=== PATIENT | female | born 2000 | race Caucasian/White ===

== ENCOUNTER 2020-01-14 17:15 | Emergency (ER) | payer OTHER, SELFPAY ==
[2020-01-14 17:22] VITALS: BP 151/107; PULSE 86; RESP 16; TEMP 36.9; O2SAT 98; BMI 28.1
--- NOTE | 2020-01-14 17:43 | PC.NURSE ---
PT A&O, NO SOB OR CHEST PAIN. NO N/V. PROVIDER IN TO ASSESS PT.
[2020-01-14 17:53] VITALS: BP 148/82; PULSE 76; RESP 16
[2020-01-14 18:17] LABS: Basophils Percent Auto 0.6 % (0-2); Eosinophils Absolute Auto 0.2 X10*3/uL (0.0-0.4); Eosinophils Percent Auto 2.9 % (0-4); Hematocrit 35.4 % (37-47); Hemoglobin 11.7 g/dl (12.0-16.0); Imm Gran Abs Auto 0.02 X10*3/uL (0.00-0.03); Imm Gran Pct Auto 0.3 % (0.0-0.4); Lymphocytes Absolute Auto 2.1 X10*3/uL (1.2-4.9); Lymphocytes Percent Auto 31.8 % (20-40); MANUAL DIFF FLAG NO; Mean Corpuscular HGB Conc 33.1 g/dl (31.0-35.0); Mean Corpuscular Hemoglobin 28.6 pg (27.0-33.0); Mean Corpuscular Volume 86.6 fL (80-98); Mean Platelet Volume 10.3 fL (9.4-12.3); Monocytes Absolute Auto 0.5 X10*3/uL (0.1-1.2); Monocytes Percent Auto 7.3 % (2-11); Neutrophils Absolute Auto 3.8 X10*3/uL (2.0-8.3); Neutrophils Percent Auto 57.1 % (45-73); Platelet Count 286 X10*3/uL (160-400); Red Blood Count 4.09 X10*6/uL (4.20-5.50); Red Cell Distribution Width 12.3 % (11.0-16.0); White Blood Count 6.6 X10*3/uL (4.8-10.8)
[2020-01-14 18:45] LABS: Magnesium 1.8 mg/dL (1.6-2.6)
[2020-01-14 18:46] LABS: Alanine Aminotransferase 10 U/L (0-31); Albumin Level 4.2 g/dL (3.5-5.0); Alkaline Phosphatase 70 U/L (39-117); Anion Gap 14 (12-20); Aspartate Amino Transferase 11 U/L (5-31); Bilirubin Direct < 0.2 mg/dL (0.0-0.5); Bilirubin Total 0.2 mg/dL (0.0-1.0); Blood Urea Nitrogen 14 mg/dL (9-16); Calcium 9.2 mg/dL (8.4-10.2); Carbon Dioxide 24 mmol/L (22-29); Chloride 107 mmol/L (96-108); Creatinine Clr Calc Pharmacy 127.3; Estimated Glomerular Filt Rate > 60; Glucose Random 114 mg/dL (60-115); Lactate Dehydrogenase 151 U/L (122-220); Lipase 14 U/L (8-78); Potassium 3.6 mmol/l (3.3-5.1); Sodium 141 mmol/L (135-145); Total Protein 6.9 g/dL (6.5-8.0)
--- NOTE | 2020-01-14 18:46 | ED_ITS ---
HPI - Headache General Chief Complaint: Headache Stated Complaint: HBP Time Seen by Provider: 01/14/20 17:40 Source: patient Mode of arrival: ambulatory Limitations: no limitations History of Present Illness HPI Narrative: 19-year-old female with preeclampsia, pre term premature rupture of membranes, 2 weeks with spontaneous vaginal delivery presents with headaches and hypertension. she has had poor care, did not know that she was until her 3rd trimester, and was treated for and admitted to [facility] for preeclampsia with severe ranges in blood pressure. At this time her only complaint is a headache and elevated blood pressure. She denies vaginal bleeding, vaginal discharge, fevers, chills, abdominal pain, chest pain or pressure, palpitations, shortness of breath, dysuria, hematuria, and edema. Related Data Allergies Allergy/AdvReac Type Severity Reaction Status Date / Time No Known Allergies Allergy Verified 01/14/20 17:24 Review of Systems Review of Systems: Constitutional: No Fever, No Chills positive headache, elevated blood pressures at home ENT/Mouth: No sore throat, No Rhinorrhea Eyes: No Eye Pain, No Swelling, No Redness Cardiovascular: No Chest Pain, No SOB Respiratory: No Cough, No Sputum Gastrointestinal: No Nausea, No Vomiting, No Diarrhea, No abdominal Pain Genitourinary: No Dysuria, No Hematuria, no vaginal bleeding, no vaginal discharge Musculoskeletal: No joint pain, No Myalgias, No Joint Swelling Skin: No Skin Lesions, no skin rash Neuro: No Weakness, No Numbness, No Loss of Consciousness, No Dizziness, No Headache Psych: No Anxiety, No Depression, No SI/HI/AH/VH Heme/Lymph: No Bruising, No Bleeding,No Lymphadenopathy Endocrine: No Polyuria, No Polydipsia Yes all other systems are reviewed and are negative [facility] Past Medical History Attestation statement: The following information was validated with the patient. Medical History No known health problems : 1 Para: 1 Social History Social History Smoked in Last 30 Days: No Use of substances other than those prescribed or required for medical reasons: No Advance Directives: No Advance Directives Information Provided: No Physical Exam Vital Signs: Vital Signs: Last Vital Signs Temp 97.8 F 01/14/20 19:39 Pulse 74 01/14/20 19:39 Resp 18 01/14/20 19:39 BP 143/95 H 01/14/20 19:39 Pulse Ox 99 01/14/20 19:39 Body Mass Index 28.1 IMP/Plan: Allergic rxn. Not anaphylaxis. Not sepsis/ infectious etiology. Patient well appearing in no acute distress, breathing easily without throat symptoms. Speaking full sentences, and handling secretions without difficulty. There is no obvious threat to airway. Lungs are CTA in all rothman. No signs of angioedema, stridor, airway compromise, anaphylaxis or anaphylactic shock. Not c/w SSSS/ TEN/ Eryth multiforme/ Nails Johnsons. Given HPI and PE - Will watch and observe. If patient continues to be symptom free - will d/c with return precautions. Patient understands and agrees with plan Course Course Course Narrative: She was admitted for preeclampsia with severe features by severe blood pressure ranges and pre term labor premature rupture of membranes. She was seen at [facility] then transferred to [facility] on 01/01/2020. She had limited care, 36 weeks with normal spontaneous vaginal delivery. Her daughter was born healthy. We will monitor blood pressures, draw labs, and contact driver salesman. Lab values are unremarkable And within normal limits, LDH normal, liver e nzymes normal. blood pressures remain elevated 143/95 at 7:39 p.m. discussion with on-call OBGYN, plan of care is for her to have Motrin, to follow-up with her OBGYN this week, contraindicated to start blood pressure medications as we do not want to mask any preeclampsia symptoms. Patient verbalized understanding of and agrees to plan of care discharge home. Consultations Consultation #1: Jyothi Time: 19:40 MDM - Headache Differential Diagnosis Differential diagnosis: Likely migraine and headache Medical Records Attestation: I reviewed the patient's medical records. Lab Data Attestation: I reviewed the patient's lab results. Result diagrams: 01/14/20 18:11 01/14/20 18:11 Labs: Lab Results 01/14/20 01/14/20 01/14/20 Range/Units 18:11 18:11 18:11 WBC 6.6 (4.8-10.8) X10*3/uL RBC 4.09 L (4.20-5.50) X10*6/uL Hgb 11.7 L (12.0-16.0) g/dl Hct 35.4 L (37-47) % MCV 86.6 (80-98) fL MCH 28.6 (27.0-33.0) pg MCHC 33.1 (31.0-35.0) g/dl RDW 12.3 (11.0-16.0) % Plt Count 286 (160-400) X10*3/uL MPV 10.3 (9.4-12.3) fL Immature Gran % (Auto) 0.3 (0.0-0.4) % Neut % (Auto) 57.1 (45-73) % Lymph % (Auto) 31.8 (20-40) % [place] % (Auto) 7.3 (2-11) % Eos % (Auto) 2.9 (0-4) % Baso % (Auto) 0.6 (0-2) % Lymph # (Auto) 2.1 (1.2-4.9) X10*3/uL [place] # (Auto) 0.5 (0.1-1.2) X10*3/uL Eos # (Auto) 0.2 (0.0-0.4) X10*3/uL Baso # (Auto) 0.0 (0.0-0.2) X10*3/uL Abs Immat Gran (auto) 0.02 (0.00-0.03) X10*3/uL Absolute Neuts (auto) 3.8 (2.0-8.3) X10*3/uL Absolute Nucleated RBC 0.000 (0.0-0.012) X10*3/uL Nucleated RBC % (auto) 0.0 (0.0-0.2) /100WBC Sodium 141 (135-145) mmol/L Potassium 3.6 (3.3-5.1) mmol/l Chloride 107 (96-108) mmol/L Carbon Dioxide 24 (22-29) mmol/L Anion Gap 14 (12-20) BUN 14 (9-16) mg/dL Creatinine 0.69 (0.5-1.4) mg/dL Estim Creat Clear Calc 127.3 Estimated GFR > 60 Random Glucose 114 (60-115) mg/dL Calcium 9.2 (8.4-10.2) mg/dL Magnesium 1.8 (1.6-2.6) mg/dL Total Bilirubin 0.2 (0.0-1.0) mg/dL Direct Bilirubin < 0.2 (0.0-0.5) mg/dL AST 11 (5-31) U/L ALT 10 (0-31) U/L Alkaline Phosphatase 70 (39-117) U/L Lactate Dehydrogenase 151 (122-220) U/L Total Protein 6.9 (6.5-8.0) g/dL Albumin 4.2 (3.5-5.0) g/dL Lipase 14 (8-78) U/L Discharge Plan Discharge Clinical Impression: Pre-eclampsia in period Headache Qualifiers: Headache type: unspecified Headache chronicity pattern: acute headache Intractability: not intractable Qualified Code(s): R51.9 - Headache, unspecified Patient Disposition: Home, Self-Care Instructions: Acute Headache (ED) Additional Instructions: please take Motrin and/or Tylenol as needed for headaches. This is suspected to be preeclampsia. Please follow-up with your ELECTRIC ACCOUNTING MACHINE OPERATOR this week. Thank you for choosing this emergency department for evaluation. Please follow-up with primary care physician as needed. Return to the emergency department for any new, concerning, or worsening symptoms. Interventions: ED Discharge Assessment Last Done: 01/14/20 20:22 Discharge Date/Time: 01/14/20 20:24
--- NOTE | 2020-01-14 18:48 | PC.NURSE ---
Iv line placed and labs sent. pt is resting in bed on her cell phone. no n/v.
[2020-01-14 19:39] VITALS: BP 143/95; PULSE 74; RESP 18; TEMP 36.6; O2SAT 99
[2020-01-14] MEDS: Ibuprofen 600 MG TABLET PO (20:12)
== END 2020-01-14 20:24 | disposition home or self-care (01) ==
PROVIDERS: Nurse Practitioner Family; Emergency Provider Emergency Medicine; PCP Internal Medicine
DX: O14.95 Unspecified pre-eclampsia, complicating the puerperium (principal); R51.9 Headache, unspecified
CPT/HCPCS: 36415; 80048; 80076; 83615; 83690; 83735; 85025; 99283; 99284

== ENCOUNTER 2020-03-02 22:58 | Emergency (ER) | payer OTHER, SELFPAY ==
[2020-03-02 23:35] VITALS: BP 149/89; PULSE 71; RESP 16; TEMP 36.3; O2SAT 99; BMI 31.0
--- NOTE | 2020-03-02 23:55 | ECG_ITS ---
Test Reason : HYPERTENSION Blood Pressure : / mmHG Vent. Rate : 068 BPM Atrial Rate : 068 BPM P-R Int : 138 ms QRS Dur : 082 ms QT Int : 406 ms P-R-T Axes : 025 050 040 degrees QTc Int : 431 ms Normal sinus rhythm with sinus arrhythmia Normal ECG No previous ECGs available Referred By: Oliver Ash Electronically Signed By:ARYA GRAJEDA
--- NOTE | 2020-03-02 23:58 | ED.GENADULT ---
HPI - General Adult General Chief complaint: General Medical Stated complaint: hypertension Time Seen by Provider: 03/02/20 23:09 Source: patient Mode of arrival: ambulatory Limitations: no limitations History of Present Illness HPI narrative: 19-year-old female G1, P1 with history of preeclampsia, pre term premature rupture of membranes on 12/29/2019, delivered a healthy baby girl vaginally at 36 weeks at [facility] who presents to the emergency department for evaluation of lightheadedness and elevated blood pressure. The patient states she had poor care since she did not know she was until her 3rd trimester. She states that when she was in the hospital at [facility], she did have headaches and elevated blood pressures. She states that she was on magnesium but at the time of discharge her blood pressure improved and she was not treated with blood pressure medications. She was seen here in the emergency department on 01/14/2020 for headaches and elevated blood pressure in the 140/90 range. She states that she followed up with her STRIKE ON MACHINE OPERATOR after this ED visit and they did not think that she required blood pressure medications. She states that this evening she felt lightheaded but had no other symptoms. She denied headache, nausea, chest pain, abdominal pain, fatigue. She checked her blood pressure with a wrist blood pressure cuff at 8:30 p.m. and her blood pressure was 195/139. She then waited and repeated her blood pressure which was higher at 246/179 therefore she came to the emergency department for evaluation. At the time of evaluation she has no complaints. Her initial blood pressure in the emergency department was 148/89. Related Data Home Medications Medication Instructions Recorded Confirmed No Known Home Meds 03/03/20 03/03/20 Allergies Allergy/AdvReac Type Severity Reaction Status Date / Time No Known Allergies Allergy Verified 01/14/20 17:24 Review of Systems Review of Systems: Yes all other systems are reviewed and are negative Neurologic: Reports Abnormal speech present [facility] Past Medical History [facility] Narrative: The patient has a history of preeclampsia, she has no other chronic medical conditions. She denies alcohol use. She states she drinks alcohol occasionally, she denies drug use. Medical History No known health problems Social History Social History Smoking Status: Never smoker Use of substances other than those prescribed or required for medical reasons: No Advance Directives: No Advance Directives Information Provided: No Physical Exam Vital Signs: Vital Signs: Last Vital Signs Temp 97.4 F 03/02/20 23:35 Pulse 71 03/03/20 00:18 Resp 15 03/03/20 00:18 BP 130/77 03/03/20 00:18 Pulse Ox 99 03/02/20 23:35 Body Mass Index 31.0 Const: General: cooperative and healthy appearing Nutritional Appearance: overweight Orientation/consciousness: oriented to person and oriented to place Limitations: no limitations HENMT: Head: Yes normal to inspection, Yes normocephalic and Yes atraumatic Ears: external ears normal General nose exam: Normal external nose present Face and sinus: Yes normal facial exam Mouth: Normal oral and palatal mucosa present Throat: Yes posterior oropharynx normal Eyes: Periorbital: periorbital findings normal Eyelids: Yes eyelids normal Conjunctivae: conjunctivae normal Sclerae: sclerae normal Corneas: corneas normal Pupils: Equal, round and reactive pupils present Direct Ophthalmoscopy: normal light reflex Neck: Neck: Yes full ROM, Yes no lymphadenopathy, Yes no meningeal signs, Yes trachea midline and Yes supple Chest: Chest palpation & inspection: normal inspection of the chest and normal palpation of entire chest wall Resp: Effort & Inspection: normal respiratory effort and able to speak in complete sentences Auscultation: clear to auscultation bilaterally Cardio: Rate: regular rate Rhythm: regular rhythm Heart sounds: S1 normal heart sound present, S2 normal heart sound present and no murmurs GI: Inspection: Yes normal to inspection Palpation (GI): Soft to palpation, nontender, no guarding, not rigid and No hepatosplenomegaly present : General: Yes no CVA tenderness Back/Spine/Pelvis: Back: no CVA tenderness Cervical Spine: normal cervical lordosis Thoracic/Lumbar Spine: thoracic and lumbar spine normal to inspection Skin: Lesions: no lesions Rashes: no rashes Wounds: no wounds Neuro: General: oriented to person, oriented to place and no meningeal signs Cranial nerves: Yes CN's II-XII intact bilaterally and Yes Equal, round and reactive pupils present Cognition (Neuro): normal cognition Speech: Abnormal speech present Motor exam (neuro): 5/5 motor strength present throughout Extrem: General: Yes normal to inspection and Yes full ROM Psych: Appearance: well kempt Mental Status: mental status grossly normal Speech and movement: Normal speech and movement present Affect: normal affect Attitude: cooperative Thought process: Normal thought process present Thought content: Normal thought content present Course Course Course Narrative: 18-year-old female who presents emergency department for evaluation lightheadedness and hypertension. The patient is 2 months and her was complicated by preeclampsia. The patient's physical examination was unremarkable except for an elevated blood pressure of 148/89. I do not believe that the patient's blood pressure readings that she obtained at home were accurate. The patient will have a blood pressure monitor while she is here in the emergency department and I did order a CBC, CMP, UA Urine test on this patient. 0106: The patient's laboratory evaluation was normal with a normal platelet count, normal LFTs, and a urinalysis which was negative for protein. Patient's urine test was negative. EKG was normal and patient's troponin was not elevated. The patient's repeat blood pressures were normal with her last blood pressure being 109/63 and this was without treatment. I did discuss these findings with the patient. She was advised to get a new blood pressure cuff and to check her blood pressure on Wednesday, Wednesday and Wednesday mornings for the next 2 weeks. She was instructed to record these readings and discuss them with her PCP. Medical Decision Making Lab Data Result diagrams: 03/03/20 00:17 03/03/20 00:17 Labs: Lab Results 03/03/20 03/03/20 03/03/20 Range/Units 00:17 00:17 00:17 WBC 8.2 (4.8-10.8) X10*3/uL RBC 4.59 (4.20-5.50) X10*6/uL Hgb 12.7 (12.0-16.0) g/dl Hct 40.0 (37-47) % MCV 87.1 (80-98) fL MCH 27.7 (27.0-33.0) pg MCHC 31.8 (31.0-35.0) g/dl RDW 12.4 (11.0-16.0) % Plt Count 353 (160-400) X10*3/uL MPV 10.2 (9.4-12.3) fL Immature Gran % (Auto) 0.4 (0.0-0.4) % Neut % (Auto) 44.6 L (45-73) % Lymph % (Auto) 37.1 (20-40) % [place] % (Auto) 9.2 (2-11) % Eos % (Auto) 8.1 H (0-4) % Baso % (Auto) 0.6 (0-2) % Lymph # (Auto) 3.0 (1.2-4.9) X10*3/uL [place] # (Auto) 0.8 (0.1-1.2) X10*3/uL Eos # (Auto) 0.7 H (0.0-0.4) X10*3/uL Baso # (Auto) 0.1 (0.0-0.2) X10*3/uL Abs Immat Gran (auto) 0.03 (0.00-0.03) X10*3/uL Absolute Neuts (auto) 3.6 (2.0-8.3) X10*3/uL Absolute Nucleated RBC 0.000 (0.0-0.012) X10*3/uL Nucleated RBC % (auto) 0.0 (0.0-0.2) /100WBC Sodium 141 (135-145) mmol/L Potassium 3.8 (3.3-5.1) mmol/l Chloride 106 (96-108) mmol/L Carbon Dioxide 26 (22-29) mmol/L Anion Gap 13 (12-20) BUN 12 (9-16) mg/dL Creatinine 0.71 (0.5-1.4) mg/dL Estim Creat Clear Calc 128.7 Estimated GFR > 60 Random Glucose 97 (60-115) mg/dL Calcium 9.1 (8.4-10.2) mg/dL Total Bilirubin 0.2 (0.0-1.0) mg/dL AST 15 (5-31) U/L ALT 15 (0-31) U/L Alkaline Phosphatase 78 (39-117) U/L Troponin I High Sens < 3.5 (<3.5-17.0) ng/L Total Protein 7.5 (6.5-8.0) g/dL Albumin 4.4 (3.5-5.0) g/dL Urine Color Urine Appearance Urine pH (5.0-8.0) Ur Specific [place] (1.005-1.025) Urine Protein (NEG-TRACE) MG/DL Urine Glucose (UA) (NEG) MG/DL Urine Ketones (NEG) MG/DL Urine Blood (NEG) Urine Nitrite (NEG) Ur Leukocyte Esterase (NEG) Urine Test (NEGATIVE) 03/03/20 Range/Units 00:17 WBC (4.8-10.8) X10*3/uL RBC (4.20-5.50) X10*6/uL Hgb (12.0-16.0) g/dl Hct (37-47) % MCV (80-98) fL MCH (27.0-33.0) pg MCHC (31.0-35.0) g/dl RDW (11.0-16.0) % Plt Count (160-400) X10*3/uL MPV (9.4-12.3) fL Immature Gran % (Auto) (0.0-0.4) % Neut % (Auto) (45-73) % Lymph % (Auto) (20-40) % [place] % (Auto) (2-11) % Eos % (Auto) (0-4) % Baso % (Auto) (0-2) % Lymph # (Auto) (1.2-4.9) X10*3/uL [place] # (Auto) (0.1-1.2) X10*3/uL Eos # (Auto) (0.0-0.4) X10*3/uL Baso # (Auto) (0.0-0.2) X10*3/uL Abs Immat Gran (auto) (0.00-0.03) X10*3/uL Absolute Neuts (auto) (2.0-8.3) X10*3/uL Absolute Nucleated RBC (0.0-0.012) X10*3/uL Nucleated RBC % (auto) (0.0-0.2) /100WBC Sodium (135-145) mmol/L Potassium (3.3-5.1) mmol/l Chloride (96-108) mmol/L Carbon Dioxide (22-29) mmol/L Anion Gap (12-20) BUN (9-16) mg/dL Creatinine (0.5-1.4) mg/dL Estim Creat Clear Calc Estimated GFR Random Glucose (60-115) mg/dL Calcium (8.4-10.2) mg/dL Total Bilirubin (0.0-1.0) mg/dL AST (5-31) U/L ALT (0-31) U/L Alkaline Phosphatase (39-117) U/L Troponin I High Sens (<3.5-17.0) ng/L Total Protein (6.5-8.0) g/dL Albumin (3.5-5.0) g/dL Urine Color YELLOW Urine Appearance CLEAR Urine pH 6.0 (5.0-8.0) Ur Specific [place] 1.020 (1.005-1.025) Urine Protein NEG (NEG-TRACE) MG/DL Urine Glucose (UA) NEG (NEG) MG/DL Urine Ketones NEG (NEG) MG/DL Urine Blood NEG (NEG) Urine Nitrite NEG (NEG) Ur Leukocyte Esterase NEG (NEG) Urine Test NEGATIVE (NEGATIVE) ECG Data Attestation: I personally reviewed and interpreted this ECG as follows: Interpretation: 0139: Normal sinus rhythm with a rate of 68, normal WA, QRS and QTC intervals, inverted T-waves in V1 and V2, no ST segment elevation, no ST segment depression, this is a normal EKG. There is no old EKG for comparison. Discharge Plan Discharge Clinical Impression: HBP (high blood pressure) Qualifiers: Hypertension type: unspecified Qualified Code(s): I10 - Essential (primary) hypertension Patient Disposition: Home, Self-Care Additional Instructions: The reason to check your blood pressure at home is to give your doctor an idea of what your blood pressure does when you are not in the doctor's office. Take your blood pressure in the morning, Mondays, Wednesdays and Fridays and then write down these readings to discuss them with your doctor at your next visit. If you doctor decides that your blood pressure readings are high than your doctor either do more testing or will start you on medications. If you get started on medications, it often takes 1-2 months or longer to get your blood pressure under control. Please return to the emergency department if you develops concerning symptoms such as severe headache, chest pain, shortness of breath, difficulty walking secondary to shortness of breath, numbness, weakness, difficulty talking. Follow-up with your doctor to discuss your blood pressure readings. Please return to the emergency department if your symptoms get worse or if you develop any new symptoms that are concerning to you. Prescriptions: No Action No Known Home Meds RF: 0
[2020-03-03 00:18] VITALS: BP 130/77; PULSE 71; RESP 15
[2020-03-03 00:29] LABS: MANUAL DIFF FLAG NO
[2020-03-03 00:37] LABS: Basophils Absolute Auto 0.1 X10*3/uL (0.0-0.2); Basophils Percent Auto 0.6 % (0-2); Eosinophils Absolute Auto 0.7 X10*3/uL (0.0-0.4); Eosinophils Percent Auto 8.1 % (0-4); Hemoglobin 12.7 g/dl (12.0-16.0); Imm Gran Abs Auto 0.03 X10*3/uL (0.00-0.03); Imm Gran Pct Auto 0.4 % (0.0-0.4); Lymphocytes Percent Auto 37.1 % (20-40); Mean Corpuscular HGB Conc 31.8 g/dl (31.0-35.0); Mean Corpuscular Hemoglobin 27.7 pg (27.0-33.0); Mean Corpuscular Volume 87.1 fL (80-98); Mean Platelet Volume 10.2 fL (9.4-12.3); Monocytes Absolute Auto 0.8 X10*3/uL (0.1-1.2); Monocytes Percent Auto 9.2 % (2-11); Neutrophils Absolute Auto 3.6 X10*3/uL (2.0-8.3); Neutrophils Percent Auto 44.6 % (45-73); Platelet Count 353 X10*3/uL (160-400); Red Blood Count 4.59 X10*6/uL (4.20-5.50); Red Cell Distribution Width 12.4 % (11.0-16.0); White Blood Count 8.2 X10*3/uL (4.8-10.8)
[2020-03-03 00:40] LABS: Appearance Urine CLEAR; Color Urine YELLOW; Glucose Urine UA NEG (NEG); Leukocyte Esterase Urine NEG (NEG); Nitrite Urine NEG (NEG); UACC Culture Trigger NO; Urine Blood NEG (NEG); Urine Ketones NEG (NEG); Urine Protein NEG (NEG-TRACE)
[2020-03-03 00:41] LABS: UPreg QC Valid YES; Urine Pregnancy NEGATIVE (NEGATIVE)
[2020-03-03 00:55] LABS: Alanine Aminotransferase 15 U/L (0-31); Albumin Level 4.4 g/dL (3.5-5.0); Alkaline Phosphatase 78 U/L (39-117); Anion Gap 13 (12-20); Aspartate Amino Transferase 15 U/L (5-31); Bilirubin Total 0.2 mg/dL (0.0-1.0); Blood Urea Nitrogen 12 mg/dL (9-16); Calcium 9.1 mg/dL (8.4-10.2); Carbon Dioxide 26 mmol/L (22-29); Chloride 106 mmol/L (96-108); Creatinine Clr Calc Pharmacy 128.7; Estimated Glomerular Filt Rate > 60; Glucose Random 97 mg/dL (60-115); Potassium 3.8 mmol/l (3.3-5.1); Sodium 141 mmol/L (135-145); Total Protein 7.5 g/dL (6.5-8.0)
[2020-03-03 01:00] LABS: Troponin-I High Sensitivity < 3.5 ng/L (<3.5-17.0)
[2020-03-03 01:02] VITALS: BP 109/63; PULSE 70; RESP 15; O2SAT 98
== END 2020-03-03 01:32 | disposition home or self-care (01) ==
PROVIDERS: Emergency Provider Emergency Medicine Emergency Medical Services; PCP Internal Medicine
DX: I10 Essential (primary) hypertension (principal); R42 Dizziness and giddiness
CPT/HCPCS: 36415; 80053; 81003; 81025; 84484; 85025; 93005; 99284

== ENCOUNTER 2020-08-14 12:03 | Emergency (ER) | payer OTHER, SELFPAY ==
--- NOTE | ~2020-08-14 | US_ITS ---
EXAMINATION: US VENOUS ULTRASOUND WITH DOPPLER LOWER EXTREMITY, RIGHT CLINICAL INFORMATION: Right lower extremity edema. Assess for occult DVT. COMPARISON: Radiographs right ankle 08/14/2020. TECHNIQUE: Ultrasound of the deep veins is performed from the hip to the calf with compression sonography and color and pulse Doppler assessment. Spectral analysis with color-flow imaging is performed. FINDINGS: There is normal venous compression and respiratory variation and augmented flow. The visualized common femoral vein, superficial femoral vein, profunda femoral vein, popliteal vein, and the trifurcation region shows no evidence of deep venous thrombosis. No popliteal fossa cyst demonstrated. Right inguinal node seen with normal chau architecture and short axis dimension 0.8 cm. US/US venous duplex LE RT IMPRESSION: No DVT demonstrated in the right lower extremity.
--- NOTE | ~2020-08-14 | XR_ITS ---
EXAMINATION: XR ANKLE, RIGHT CLINICAL INFORMATION: Atraumatic right ankle pain and swelling COMPARISON: December 20, 2009 TECHNIQUE: AP, lateral, and mortise views of the right ankle. FINDINGS: There is no evidence of acute fracture or dislocation of the right ankle. Ankle mortise intact. There is some soft tissue swelling present along the lateral aspect. Orthopedic hardware again evident within the tarsal bones without change in appearance. XR/XR ankle RT min 3V IMPRESSION: Soft tissue swelling without evidence of acute bony abnormality. Orthopedic hardware present.
[2020-08-14 12:08] VITALS: BP 137/88; PULSE 71; RESP 18; TEMP 36.6; O2SAT 99; BMI 35.7
--- NOTE | 2020-08-14 14:21 | ED_ITS ---
HPI - Extremity Problem General Chief complaint: Extremity Injury, Lower <KIM Lei Last Filed: 08/14/20 14:51> Stated complaint: rt ankle pain and swelling <KIM Lei Last Filed: 08/14/20 14:51> Time Seen by Provider: 08/14/20 13:09 <KIM Lei Last Filed: 08/14/20 14:51> Source: patient <KIM Lei Last Filed: 08/14/20 14:51> Mode of arrival: ambulatory <KIM Lei Last Filed: 08/14/20 14:51> Limitations: no limitations <KIM Lei Last Filed: 08/14/20 14:51> History of Present Illness HPI Narrative: 20-year-old female with a past medical history of right ankle surgery presenting to the ED with complaints of atraumatic right ankle pain /swelling that has been constant over the past week. 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 She reports that usually it is worse at night and when she wakes up the swelling improves although within the past week the swelling has been persistent and has not gone away. She recently gave she has a 7-month-old baby she is not currently . She denies any other symptoms complaints or concerns at this time. <KIM Lei - Last Filed: 08/14/20 14:51> MD Complaint: extremity pain and extremity swelling <KIM Lei Last Filed: 08/14/20 14:51> Onset (ago): week(s) ( One week) <KIM Lei Last Filed: 08/14/20 14:51> Pain Consistency: constant <KIM Lei Last Filed: 08/14/20 14:51> Location: right <KIM Lei Last Filed: 08/14/20 14:51> Quality: aching <KIM Lei Last Filed: 08/14/20 14:51> Radiation: none <KIM Lei Last Filed: 08/14/20 14:51> Relieving factors: other ( in the morning when she wakes up) <KIM Lei Last Filed: 08/14/20 14:51> Exacerbating factors: weight bearing, walking, palpation and other ( nighttime) <KIM Lei Last Filed: 08/14/20 14:51> Associated symptoms: denies other symptoms <KIM Lei - Last Filed: 08/14/20 14:51> Related Data Home medications: Previous Rx's Medication Instructions Recorded acetaminophen 500 mg tablet 1,000 mg PO QID PRN #14 tab 08/14/20 (Tylenol Extra Strength) ibuprofen 800 mg tablet 800 mg PO Q8H PRN #14 tab 08/14/20 <KIM Lei Last Filed: 08/14/20 14:51> Allergies/Adverse reactions: Allergies Allergy/AdvReac Type Severity Reaction Status Date / Time No Known Allergies Allergy Verified 08/14/20 12:07 <KIM Lei Last Filed: 08/14/20 14:51> Review of Systems Review of Systems: Constitutional : No changes in activity, No lethargy, No recent prior head injury, No agitation, No increased fussiness ENT/Mouth : No Ear Pain, No Nasal discharge/drainage Eyes: No Eye Pain, No Swelling, No Redness, No Foreign Body, No Vision Changes Cardiovascular : No Chest Pain, No SOB Respiratory : No Cough Gastrointestinal : No Nausea, No Vomiting, No abdominal Pain Genitourinary : No Dysuria, No Urinary Frequency, No Urinary Incontinence, No Urgency, No Flank Pain Musculoskeletal : + joint pain, No neck stiffness, No back pain/injury Skin : No lacerations Neuro : No unsteady gait, No Paresthesias, No Loss of Consciousness, No altered mental status, No Headache <KIM Lei - Last Filed: 08/14/20 14:51> Yes all other systems are reviewed and are negative <KIM Lei Last Filed: 08/14/20 14:51> [facility] Past Medical History Attestation statement: The following information was validated with the patient. <KIM Lei Last Filed: 08/14/20 14:51> Surgical History: Surgical History History of ankle surgery <KIM Lei Last Filed: 08/14/20 14:51> Social History Social History: Social History Advance Directives: Yes Advance Directives Information Provided: Yes Advance Directives on File: No Patient : No <KIM Lei - Last Filed: 08/14/20 14:51> Physical Exam Vital Signs: Vital Signs: Last Vital Signs Temp 97.8 F 08/14/20 12:08 Pulse 71 08/14/20 12:08 Resp 18 08/14/20 12:08 BP 137/88 08/14/20 12:08 Pulse Ox 99 08/14/20 12:08 Body Mass Index 35.7 vital signs have been reviewed as normal and appeared to be correct. Blood pressure normal. Heart rate normal. Respiration rate normal. Temperature normal. Oxygen saturation normal. <KIM Lei - Last Filed: 08/14/20 14:51> Vital Signs: Last Vital Signs Temp 97.8 F 08/14/20 12:08 Pulse 71 08/14/20 12:08 Resp 18 08/14/20 12:08 BP 137/88 08/14/20 12:08 Pulse Ox 99 08/14/20 12:08 Body Mass Index 35.7 <Dominguez Hernandez MD - Last Filed: 09/16/20 06:37> Appearance: Alert. Oriented X3. No acute distress. Head: Normal external exam. Normocephalic. Atraumatic. Eyes: PERRLA. EOMI. Conjunctiva and sclera normal. Eyelids normal. ENT: Pharynx normal. Uvula midline. Moist mucous membranes. Neck: Normal inspection. Neck supple. FROM. No adenopathy. Thyroid Normal. No meningeal signs. No neck mass noted. CVS: Normal heart rate and rhythm. Heart sound normal. Pulses normal throughout. No murmurs/rales/gallops. Respiratory: No respiratory distress. Painless inspiration. Breath sounds normal. No wheezes/rales/rhonchi noted. Chest nontender. No accessory muscle usage noted or decreased air movement noted. Back: Full range of motion noted. No rashes/lesion/induration/fluctuance or signs of infection noted. Skin: Skin warm and dry. Normal skin color. Normal skin turgor. No rashes/lesions/lacerations noted. Extremities: No lower extremity edema. no calf tenderness is noted. Patient has tenderness to palpation to right lateral malleolus right under an old scar with mild soft tissue swelling. Patient has full range of motion no obvious ligamentous laxity. No erythema/ induration / fluctuance /streaking /foreign bodies or signs of infection noted. Achilles tendon is intact negative Grayson's test. Otherwise all other Extremities exhibit normal range of motion and nontender. Neuro: Oriented X 3. No motor deficit. No sensory deficit. Reflexes normal. Normal steady gait. No focal neuro deficits noted. Vascular: + radial pulses/+ 2 distal pedal pulses/+2 dorsalis pedis b/l. Normal cap refill. No cyanosis noted to upper extremity nails and lower extremity toes nails. <KIM Lei - Last Filed: 08/14/20 14:51> Course Course Course Narrative: 20-year-old female presenting to the ED with atraumatic right ankle pain /swelling for the past week. 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 has a 7-month-old baby she recently gave 2. on exam patient has mild soft tissue swelling no obvious deformities or signs of infection. No lower extremity edema or calf tenderness is noted. Ultrasound of right lower extremity obtained and no evidence of a DVT. Right ankle x-ray reveals soft tissue swelling and hardware was intact no other acute processes were noted. Therefore I placed the patient in [place] wrap and told her to follow up her primary care provider and to follow-up with orthopedics in the next few weeks if symptoms persist and to return if any new or worsening symptoms. Patient understands agrees with this plan. <KIM Lei - Last Filed: 08/14/20 14:51> I have reviewed the chart <Dominguez Hernandez MD - Last Filed: 09/16/20 06:37> MDM - Extremity (Nontraumatic) Medical Records Attestation: I reviewed the patient's medical records. <KIM Lei - Last Filed: 08/14/20 14:51> Imaging Data X-ray of right ankle and venous duplex ultrasound of right lower extremity: Attestation: I personally reviewed and interpreted this imaging study as follows: <KIM Lei - Last Filed: 08/14/20 14:51> Radiologist's impression: FINDINGS: There is no evidence of acute fracture or dislocation of the right ankle. Ankle mortise intact. There is some soft tissue swelling present along the lateral aspect. Orthopedic hardware again evident within the tarsal bones without change in appearance. XR/XR ankle RT min 3V IMPRESSION: Soft tissue swelling without evidence of acute bony abnormality. Orthopedic hardware present. FINDINGS: There is normal venous compression and respiratory variation and augmented flow. The visualized common femoral vein, superficial femoral vein, profunda femoral vein, popliteal vein, and the trifurcation region shows no evidence of deep venous thrombosis. No popliteal fossa cyst demonstrated. Right inguinal node seen with normal chau architecture and short axis dimension 0.8 cm. US/US venous duplex LE RT IMPRESSION: No DVT demonstrated in the right lower extremity. <KIM Lei - Last Filed: 08/14/20 14:51> Discharge Plan Discharge Clinical Impression: Ankle sprain and strain, Pedal edema <KIM Lei - Last Filed: 08/14/20 14:51> Patient Disposition: Home, Self-Care <KIM Lei Last Filed: 08/14/20 14:51> Instructions: Ankle Sprain (ED) <KIM Lei - Last Filed: 08/14/20 14:51> Prescriptions: New ibuprofen 800 mg tablet 800 mg PO Q8H PRN (Reason: pain) Qty: 14 RF: 0 acetaminophen [Tylenol Extra Strength] 500 mg tablet 1,000 mg PO QID PRN (Reason: fever or pain) Qty: 14 RF: 0 <KIM Lei Last Filed: 08/14/20 14:51> Referrals: Lexus Almeida MD [Physician] - 2 weeks (as needed ) Rajiv Potter MD [Primary Care Provider] - 2 days <KIM Lei Last Filed: 08/14/20 14:51> Interventions: ED Discharge Assessment Last Done: 08/14/20 14:56 <KIM Lei Last Filed: 08/14/20 14:51> Discharge Date/Time: 08/14/20 14:58 <KIM Lei Last Filed: 08/14/20 14:51> Print Language: Tamazight <KIM Lei - Last Filed: 08/14/20 14:51>
== END 2020-08-14 14:58 | disposition home or self-care (01) ==
PROVIDERS: Emergency Provider Emergency Medicine; PCP Internal Medicine
DX: S93.401A Sprain of unspecified ligament of right ankle, initial encounter (principal); S96.911A Strain of unspecified muscle and tendon at ankle and foot level, right foot, initial encounter; R60.0 Localized edema; X58.XXXA Exposure to other specified factors, initial encounter; Y93.9 Activity, unspecified; Y92.9 Unspecified place or not applicable; Y99.9 Unspecified external cause status
CPT/HCPCS: 73610; 93971; 99283; 99284

== ENCOUNTER 2022-12-27 20:31 | Emergency (ER) | payer MEDICAID, SELFPAY ==
[2022-12-27 20:48] VITALS: BP 154/97; PULSE 100; RESP 18; TEMP 36.9; O2SAT 99; BMI 31.8
[2022-12-27] MEDS: Diphth,Pertus(ACell),Tet Adult 0.5 ML SYRINGE IM (21:01)
--- NOTE | 2022-12-28 00:25 | ED.WOUNDLAC ---
HPI - Wound/Laceration General Chief Complaint: Wound/Laceration Stated Complaint: lac right wrist Time Seen by Provider: 12/27/22 23:01 Source: patient Mode of arrival: ambulatory History of Present Illness HPI narrative: 22-year-old female with accidental laceration while washing the dishes to palmar side of right wrist unknown last tetanus. Related Data Previous Rx's Medication Instructions Recorded acetaminophen 500 mg tablet 1,000 mg (2 x 500 mg) PO QID PRN 08/14/20 (Tylenol Extra Strength) fever or pain #14 tabs ibuprofen 800 mg tablet 800 mg PO Q8H PRN pain #14 tabs 08/14/20 Allergies Allergy/AdvReac Type Severity Reaction Status Date / Time No Known Allergies Allergy Verified 12/27/22 20:55 Review of Systems Review of Systems: Pertinent positives and negatives as stated in HPI [facility] Past Medical History Source: nursing notes reviewed Surgical History History of ankle surgery Social History Social History Advance Directives: No Advance Directives Information Provided: No Physical Exam Vital Signs: Vital Signs: Last Vital Signs Temp 98.4 F 12/27/22 20:48 Pulse 100 12/27/22 20:48 Resp 18 12/27/22 20:48 BP 154/97 H 12/27/22 20:48 Pulse Ox 99 12/27/22 20:48 O2 Del Method Room Air 12/27/22 20:48 BMI result Body Mass Index 31.8 VITAL SIGNS: Reviewed. GENERAL: Well developed, well nourished, in no acute distress. HEAD: Normocephalic/atraumatic EYES: PERRLA, EOMI i LUNGS: Normal breath sounds. No adventitious sounds or accessory muscle use. SpO2<99> CARDIOVASCULAR: Regular rate and rhythm without noted murmurs ABDOMEN: Soft, non-tender, non-distended with bowel sounds. MUSCULOSKELETAL: No tenderness, deformities, or effusions noted on gross inspection. EXTREMITIES: No cyanosis, clubbing or edema. RIGHT WRIST: 4 cm superficial laceration without deep structure injury, neurovascularly intact SKIN: Inspection of the skin reveals no rashes NEUROLOGIC: Alert and oriented x 4. Strength and sensation to light touch were grossly intact x 4. Medications Administered Discontinued Medications Generic Name Dose Route Start Last Admin Trade Name Freq PRN Reason Stop Dose Admin Diphtheria/Tetanus/Acell Pertussis 0.5 ml 12/27/22 20:57 12/27/22 21:01 Diphth,Pertus(Acell),Tet Adult 0.5 Ml Syringe IM 12/27/22 20:58 0.5 ml .ONCE ONE Administration Medical Decision Making Medical Decision Making MDM Narrative: 22-year-old female who received Tdap as well as 5 sutures to right wrist laceration, she tolerated this procedure well and is otherwise discharged home. Procedures Laceration Laceration 1: Site: upper extremity Side (If applicable): right Size (cm): 4 Description: linear Depth: simple, single layer Local Anesthetic: lidocaine 1% Amount of anesthesia used (mL): 1 Pre-repair: wound explored, irrigated extensively and deep structures intact Skin layer closed with: nylon Size (cm): 5-0 Number of sutures: 5 Technique: simple, interrupted Discharge Plan Discharge Clinical Impression: Laceration Patient Disposition: Home, Self-Care Instructions: Laceration (ED), Care For Your Stitches (ED) Additional Instructions: 1. You can remove the dressing in 24 hours and gently cleanse with soap and water, blot dry and apply antibiotic ointment with a dressing over top of it. 2. You will need to have your 5 sutures removed in 7 days. Recommend [id number] Tylenol/ibuprofen as needed for pain control. 3. Please follow-up with primary care doctor. Do not hesitate to return to the emergency room should you notice any redness/swelling/perianal and drainage. Prescriptions: No Action ibuprofen 800 mg tablet 800 mg PO Q8H PRN (Reason: pain) Qty: 14 0RF acetaminophen [Tylenol Extra Strength] 500 mg tablet 1,000 mg PO QID PRN (Reason: fever or pain) Qty: 14 0RF
== END 2022-12-28 00:34 | disposition home or self-care (01) ==
PROVIDERS: Emergency Provider Student in an Organized Health Care Education/Training Program
DX: S60.811A Abrasion of right wrist, initial encounter (principal); W26.9XXA Contact with unspecified sharp object(s), initial encounter; Y93.9 Activity, unspecified; Y92.009 Unspecified place in unspecified non-institutional (private) residence as the place of occurrence of the external cause; Y99.9 Unspecified external cause status; Z23 Encounter for immunization; Z79.899 Other long term (current) drug therapy
CPT/HCPCS: 12002; 90471; 90715; 99282; 99284

== ENCOUNTER 2024-05-22 16:26 | Emergency (ER) | payer OTHER, SELFPAY ==
--- NOTE | 2024-05-22 16:31 | PC.NURSE ---
IV removed from EMS pt sent to waiting room
[2024-05-22 16:32] VITALS: BP 145/86; PULSE 80; O2SAT 100
--- NOTE | 2024-05-22 16:34 | ED_ITS ---
HPI - Abdominal Pain General Chief Complaint: Nausea/Vomiting/Diarrhea Stated Complaint: n/v dizziness hx 1 pm stabel vitals Related Data Previous Rx's ?Medication ?Instructions ?Recorded acetaminophen 500 mg tablet 1,000 mg (2 x 500 mg) PO QID PRN 08/14/20 (Tylenol Extra Strength) fever or pain #14 tabs ibuprofen 800 mg tablet 800 mg PO Q8H PRN pain #14 tabs 08/14/20 Allergies Allergy/AdvReac Type Severity Reaction Status Date / Time No Known Allergies Allergy Verified 05/22/24 16:36 [facility] Past Medical History Surgical History History of ankle surgery Social History Social History Advance Directives: No Advance Directives Information Provided: No Do you have a plan to hurt others: No Plan Physical Exam ED Vital Signs: Vital Signs - 24 hr 05/22/24 16:35 Temperature 98 F Pulse Rate 77 Respiratory Rate 18 Blood Pressure 150/79 H Pulse Oximetry 98 Oxygen Delivery Method Room Air BMI result Body Mass Index 30.9 Course Course Course Narrative: This is a Rapid Medical Examination (RME) performed by Court Sparrow PA-C in triage. Full HPI, ROS, assessment and treatment plan per primary provider in the Main ED. 05/22/24 1635 KIM Burt Hx: 24 yo female here for eval of nausea, vomiting, diarrhea and epigatric abd pain which began around 1300 while at work. no known sick contacts. has only consumed coffee today. ems gave zofran + IVF en route - reports improvement in sx. PE/vitals: overall well appearing, holding empty emesis bag Plan: labs, viral swabs Reevaluation(s) Reevaluation #1: Patient left the emergency department before myself or any of the other clinicians could review or explain physical exam findings, test results, need or lack there of for additional testing, treatment options, or a treatment plan. Medical Decision Making Lab Data 05/22/24 19:35 05/22/24 17:05 Labs: Lab Results 05/22/24 05/22/24 Range/Units 17:05 19:35 WBC 12.7 H (4.8-10.8) X10*3/uL RBC 4.64 (4.20-5.50) X10*6/uL Hgb 12.9 (12.0-16.0) g/dl Hct 38.9 (37.0-47.0) % MCV 83.8 (80.0-98.0) fL MCH 27.8 (27.0-33.0) pg MCHC 33.2 (31.0-35.0) g/dl RDW 13.1 (11.0-16.0) % Plt Count 279 (160-400) X10*3/uL MPV 9.7 (9.4-12.3) fL Immature Gran % (Auto) 0.5 H (0.0-0.4) % Neut % (Auto) 91.6 H (45-73) % Lymph % (Auto) 2.9 L (20-40) % [place] % (Auto) 4.6 (2-11) % Eos % (Auto) 0.2 (0-4) % Baso % (Auto) 0.2 (0-2) % Lymph # (Auto) 0.4 L (1.2-4.9) X10*3/uL [place] # (Auto) 0.6 (0.1-1.2) X10*3/uL Eos # (Auto) 0.0 (0.0-0.4) X10*3/uL Baso # (Auto) 0.0 (0.0-0.2) X10*3/uL Abs Immat Gran (auto) 0.06 H (0.00-0.03) X10*3/uL Absolute Neuts (auto) 11.7 H (2.0-8.3) x10*3/uL Absolute Nucleated RBC 0.000 (0.0-0.012) X10*3/uL Nucleated RBC % (auto) 0.0 (0.0-0.2) /100WBC Smear Tech's Comments VERIFIED Sodium 140 (135-145) mmol/L Potassium 3.9 (3.3-5.1) mmol/L Chloride 111 H (96-108) mmol/L Carbon Dioxide 19 L (22-29) mmol/L Anion Gap 14 (12-20) BUN 13 (9-16) mg/dL Creatinine 0.63 (0.5-1.4) mg/dL Estim Creat Clear Calc 139.8 Estimated GFR > 60 Random Glucose 105 (60-115) mg/dL Calcium 8.9 (8.4-10.2) mg/dL Magnesium 1.7 (1.6-2.6) mg/dL Total Bilirubin 0.5 (0.0-1.0) mg/dL AST 23 (5-31) U/L ALT 16 (0-31) U/L Alkaline Phosphatase 60 (39-117) U/L Total Protein 7.9 (6.5-8.0) g/dL Albumin 4.6 (3.5-5.0) g/dL Lipase 12 (8-78) U/L Beta HCG, Quant < 2 mIU/mL Influenza Type A (PCR) NEGATIVE (Negative) Influenza Type B (PCR) NEGATIVE (Negative) RSV RNA Qual (PCR) NEGATIVE (Negative) SARS-CoV-2 RNA (RT-PCR) NEGATIVE (Negative) Discharge Plan Discharge Clinical Impression: Vomiting Patient Disposition: Left W/O Completing Treatment Prescriptions: No Action ibuprofen 800 mg tablet 800 mg PO Q8H PRN (Reason: pain) Qty: 14 0RF acetaminophen [Tylenol Extra Strength] 500 mg tablet 1,000 mg PO QID PRN (Reason: fever or pain) Qty: 14 0RF Discharge Date/Time: 05/23/24 02:42
[2024-05-22 16:35] VITALS: BP 150/79; PULSE 77; RESP 18; TEMP 36.6; O2SAT 98; BMI 30.9
[2024-05-22 17:39] LABS: Alanine Aminotransferase 16 U/L (0-31); Albumin Level 4.6 g/dL (3.5-5.0); Alkaline Phosphatase 60 U/L (39-117); Anion Gap 14 (12-20); Aspartate Amino Transferase 23 U/L (5-31); Bilirubin Total 0.5 mg/dL (0.0-1.0); Blood Urea Nitrogen 13 mg/dL (9-16); Calcium 8.9 mg/dL (8.4-10.2); Carbon Dioxide 19 mmol/L (22-29); Chloride 111 mmol/L (96-108); Creatinine Clr Calc Pharmacy 139.8; Estimated Glomerular Filt Rate > 60; Glucose Random 105 mg/dL (60-115); HCG Quantitative < 2 mIU/mL; Lipase 12 U/L (8-78); Magnesium 1.7 mg/dL (1.6-2.6); Potassium 3.9 mmol/L (3.3-5.1); Sodium 140 mmol/L (135-145); Total Protein 7.9 g/dL (6.5-8.0)
[2024-05-22 17:50] LABS: Influenza A PCR NEGATIVE (Negative); Influenza B PCR NEGATIVE (Negative); Resp Syncy Virus RNA Qual PCR NEGATIVE (Negative); SARS COV2 PCR INHOUSE NEGATIVE (Negative)
[2024-05-22 19:47] LABS: Basophils Percent Auto 0.2 % (0-2); Eosinophils Percent Auto 0.2 % (0-4); Hematocrit 38.9 % (37.0-47.0); Hemoglobin 12.9 g/dl (12.0-16.0); Imm Gran Abs Auto 0.06 X10*3/uL (0.00-0.03); Imm Gran Pct Auto 0.5 % (0.0-0.4); Lymphocytes Absolute Auto 0.4 X10*3/uL (1.2-4.9); Lymphocytes Percent Auto 2.9 % (20-40); MANUAL DIFF FLAG SCAN; Mean Corpuscular HGB Conc 33.2 g/dl (31.0-35.0); Mean Corpuscular Hemoglobin 27.8 pg (27.0-33.0); Mean Corpuscular Volume 83.8 fL (80.0-98.0); Mean Platelet Volume 9.7 fL (9.4-12.3); Monocytes Absolute Auto 0.6 X10*3/uL (0.1-1.2); Monocytes Percent Auto 4.6 % (2-11); Neutrophils Absolute Auto 11.7 x10*3/uL (2.0-8.3); Neutrophils Percent Auto 91.6 % (45-73); Platelet Count 279 X10*3/uL (160-400); Red Blood Count 4.64 X10*6/uL (4.20-5.50); Red Cell Distribution Width 13.1 % (11.0-16.0); SCAN SMEAR FLAG 1; White Blood Count 12.7 X10*3/uL (4.8-10.8)
[2024-05-22 20:16] LABS: SLIDE REVIEW VERIFIED
== END 2024-05-23 02:42 | disposition left against medical advice (07) ==
LOC: HO.ED 05-23 02:35
PROVIDERS: Physician Assistant Medical; Emergency Provider Emergency Medicine
DX: R11.2 Nausea with vomiting, unspecified (principal); R19.7 Diarrhea, unspecified; R10.13 Epigastric pain; Z03.818 Encounter for observation for suspected exposure to other biological agents ruled out
CPT/HCPCS: 0241U; 80053; 83690; 83735; 84702; 85025; 99281; 99283